=== PATIENT | female | born 1980 | race Caucasian/White ===

== ENCOUNTER 2018-02-25 10:00 | Emergency (ER) | payer OTHER ==
[~2018-02-25] VITALS: Ht 154.9 cm; Wt 51.7 kg
[~2018-02-25 10:00] MED LIST: COL100 PO; FLA500 PO; LEVAQUIN750 MG PO; NORCO1 TA2 PO
[2018-02-25 10:15] VITALS: BP 153/98; Ht 154.9 cm; Wt 51.7 kg
== END 2018-02-25 11:34 | disposition home or self-care (01) ==
LOC: ED 10:00
DX: S13.4XXA Sprain of ligaments of cervical spine, initial encounter (principal); V89.2XXA Person injured in unspecified motor-vehicle accident, traffic, initial encounter; Y93.89 Activity, other specified; Y92.89 Other specified places as the place of occurrence of the external cause; Y99.8 Other external cause status
CPT/HCPCS: J1885